=== PATIENT | male | born 1980 | race Two or more races ===

== ENCOUNTER 2022-05-24 10:42 | Emergency (ER) | payer MEDICAID ==
[~2022-05-24] VITALS: Ht 170.2 cm; Wt 67.1 kg
[~2022-05-24 10:42] MED LIST: HYDR-4209 PO; IBUP-1955 PO; ONDA4TAB5 PO
[2022-05-24] MEDS ORDERED: LISI30TA4 PO (11:04)
[2022-05-24] MEDS ORDERED: ACETAMINOPHEN ES 500 MG TABLET PO ONE (11:15)
[2022-05-24] MEDS ORDERED: IV NORMAL SALINE 1000 ML BAG IV ONE (11:15)
[2022-05-24] MEDS ORDERED: METOCLOPRAMIDE HCL 10 MG/2 ML VIAL IV ONE (11:15)
[2022-05-24] MEDS ORDERED: diphenhydrAMINE 50 MG/1 ML VIAL IV ONE (11:15)
[2022-05-24] MEDS ORDERED: METOCLOPRAMIDE HCL 10 MG/2 ML VIAL ONE (11:25)
[2022-05-24] MEDS ORDERED: ACETAMINOPHEN ES 500 MG TABLET ONE ×2 (11:25→11:28)
[2022-05-24] MEDS ORDERED: diphenhydrAMINE 50 MG/1 ML VIAL ONE (11:25)
[2022-05-24] MEDS ORDERED: IBUP-1955 PO (11:32)
[2022-05-24 11:47] LABS: HEMATOCRIT 43.6 % (36.7-47.1); MEAN CORPUSCULAR HEMOGLOBIN 28.5 uug (23.8-33.4); MEAN CORPUSCULAR VOLUME 85.7 fL (73.0-96.2); PLATELET COUNT (AUTO) 181 K/uL (152-348)
--- NOTE | 2022-05-24 12:00 | NUR ---
Pt arrived with c/o chest paibn 02/14 and headach characterized as shooting pain. Pt has hx of htn, takes lisinopril per pt. Pt is AOx4, V/S are WNL except for BP = 138/90. Denies episode of emesis and dizziness, nausea present. Seen by SHERLY for MSE.
[2022-05-24 12:03] LABS: CARBON DIOXIDE 27 mmol/L (21-32); CHLORIDE 104 mmol/L (98-107); CREATININE 0.8 mg/dL (0.6-1.3); GLUCOSE 100 mg/dL (74-106); POTASSIUM 3.9 mmol/L (3.5-5.1); UREA NITROGEN, BLOOD 16 mg/dL (7-18)
[2022-05-24 12:06] LABS: ETHANOL < 3 MG/DL (0-0)
[2022-05-24 12:54] LABS: *AMPHETAMINE, URINE NEGATIVE (NEGATIVE); *CANNABINOID, URINE NEGATIVE (NEGATIVE); *COCCAINE, URINE NEGATIVE (NEGATIVE); *OPIATE, URINE NEGATIVE (NEGATIVE); *PHENCYCLIDINE SCREEN,URINE NEGATIVE (NEGATIVE)
--- NOTE | 2022-05-24 12:56 | NUR ---
Pt discharged to home in stable condition. Written and verbal after care instructions given by Seth MAY for [place]ian translation. Pt verbalizes understanding of instructions. Stressed follow up or return to ER for worsening s/s.
[2022-05-24 12:57] VITALS: BP 141/91
== END 2022-05-24 12:58 | disposition home or self-care (01) ==
LOC: ER 10:42
DX: G44.209 Tension-type headache, unspecified, not intractable (principal); R55 Syncope and collapse; R07.9 Chest pain, unspecified; Z20.822 Contact with and (suspected) exposure to COVID-19
CPT/HCPCS: 80048; 82962; 85025; 84484; 36415; 93005; 71045; 99285; 70450; 96361; 96374; 96375; 80320; 80307; U0003; C9803; J1200; J2765; J7040; A4663; A9150; G0480